=== PATIENT | male | born 1995 | race Caucasian/White ===

== ENCOUNTER 2017-04-06 19:00 | Emergency (ER) | payer BC ==
[~2017-04-06] VITALS: Wt 80.5 kg
[2017-04-06 20:03] LABS: ADD SCAN DIFF NO
[2017-04-06 20:04] LABS: BASOPHILS % 0.4 % (0.0-2.0); EOSINOPHILS # 0.2 10^3/ul (0.0-0.5); EOSINOPHILS % 2.9 % (0.0-7.0); HEMATOCRIT 46.8 % (42.0-52.0); HEMOGLOBIN 16.8 g/dl (14.0-18.0); LYMPHOCYTES # 2.5 10^3/ul (0.8-2.9); LYMPHOCYTES % 32.1 % (15.0-51.0); MEAN CORPUSCULAR HEMOGLOBIN 32.2 pg (29.0-33.0); MEAN CORPUSCULAR HGB CONC 35.9 g/dl (32.0-37.0); MEAN CORPUSCULAR VOLUME 89.7 fl (82.0-101.0); MEAN PLATELET VOLUME 10.5 fl (7.4-10.4); MONOCYTE # 0.7 10^3/ul (0.3-0.9); MONOCYTES % 8.5 % (0.0-11.0); NEUTROPHIL # 4.4 10^3/ul (1.6-7.5); NEUTROPHILS % 56.1 % (39.0-77.0); PLATELET COUNT 257 10^3/UL (140-415); RED BLOOD COUNT 5.22 10^6/ul (4.70-6.10); RED CELL DISTRIBUTION WIDTH 11.2 % (11.5-14.5); WHITE BLOOD COUNT 7.9 10^3/ul (4.8-10.8)
--- NOTE | 2017-04-06 20:14 | RADRPT ---
PROCEDURE: XR Chest. CLINICAL INDICATION: Cough TECHNIQUE: Single AP portable chest COMPARISON: None. FINDINGS: The cardiomediastinal silhouette is within normal limits of size . The lungs are clear without pleur al effusion or focal consolidation. No pneumothorax. The osseous structures and soft tissues are unr emarkable. IMPRESSION: 1. No evidence for active cardiopulmonary disease. RPTAT:AAJJ Anton Elizabeth Physician Date Time Electronically viewed and signed by Anton Elizabeth Physician on 04/06/2017 20:13 JASSON/
[2017-04-06 20:22] LABS: ALBUMIN 5.4 g/dl (3.3-4.9); ALBUMIN/GLOBULIN RATIO 1.68; BILIRUBIN,INDIRECT 0.4 mg/dl (0-1.1); BILIRUBIN,TOTAL 0.4 mg/dl (0.2-1.3); CREATININE 1.12 mg/dl (0.61-1.24); POTASSIUM 3.8 mmol/L (3.5-5.1); TOTAL PROTEIN 8.6 g/dl (6.1-8.1)
--- NOTE | 2017-04-06 20:27 | RADRPT ---
PROCEDURE: US Abdomen. CLINICAL INDICATION: Abdominal pain. TECHNIQUE: Multiple real-time images were acquired of the patient's right upper quadrant utilizing a high resolution transducer. The images were reviewed on a high-resolution PACS workstation. COMPARISON: None FINDINGS: The liver demonstrates normal echogenicity and size and no focal lesions are seen. The liver measure s 15.1 cm in size. No gallstones are identified within the gallbladder. There is no pericholecystic fluid. The gallbladder wall measures 1.7 mm in size. No intrahepatic biliary dilatation is seen. The common bile duct measures 2.5 mm in maximal dimension. The visualized portions of the pancreas are unremarkable. No free fluid is identified. The right kidney is of normal size, and demonstrate normal echogenicity and morphology. The right k idney measures 10.7 x 3.4 x 4.9 cm. There are is no dilatation of the right collecting system. The re are no perinephric fluid collections. There are no areas of increased echogenicity to suggest ne phrolithiasis. IMPRESSION: Unremarkable right upper quadrant ultrasound. RPTAT: HPNM Physician Lizette Date Time Electronically viewed and signed by Physician Lizette on 04/06/2017 20:27 /
[2017-04-06 20:50] LABS: ADD UMIC NO; URINE BILIRUBIN (Dip) NEGATIVE (NEGATIVE); URINE BLOOD (Dip) NEGATIVE (NEGATIVE); URINE COLOR LT. YELLOW (YELLOW); URINE GLUCOSE (Dip) NEGATIVE (NEGATIVE); URINE KETONES (Dip) NEGATIVE (NEGATIVE); URINE LEUKOCYTE ESTERASE (Dip) NEGATIVE (NEGATIVE); URINE NITRITE (Dip) NEGATIVE (NEGATIVE); URINE TOTAL PROTEIN (Dip) NEGATIVE (NEGATIVE); URINE UROBILINOGEN (Dip) 0.2 E.U./dL (0.1-1.0)
[2017-04-06] MEDS ORDERED: D-ME473S18 PO (21:05)
[2017-04-06] MEDS ORDERED: MED4DP PO (21:06)
--- NOTE | 2017-04-06 21:21 | ERD ---
ER Documentation Chief Complaint Date/Time DATE: 04/06/17 TIME: 21:10 Chief Complaint Cough x1 week, Pain in the Abd when coughing. needs lab works HPI This is a 21-year-old male presents to the ER with a cough for the last week. Cough is dry and constant. He states that cough is worsening and that his abdomen is now hurting whenever he coughs. Patient states that he went to his primary care doctor week ago and blood work was drawn. Patient stated that he got a call couple days ago that liver enzymes were off and that he needed a liver ultrasound. He denies any abdominal pain at this time he denies nausea vomiting or diarrhea. He denies any fevers or chills. He denies urinary frequency, dysuria, hematuria. He denies chest pain or shortness of breath. ROS 12 point review of systems was done, all negative except per HPI. Medications Home Meds Active Scripts Methylprednisolone* (Medrol* DOSE PACK) 4 Mg/Dose-Pack Tab.ds.pk, 4 MG PO . DIRECTED for 6 Days, PACKET Prov:STEPHANIE ARORA 04/06/17 Dextromethorphan Hb-Promethazine Hcl (Promethazine DM Syrup) 473 Ml Syrup, 10 ML PO Q6H Y for COUGH, #4 OZ Prov:STEPHANIE ARORA 04/06/17 Allergies Allergies: Coded Allergies: No Known Allergy (Unverified , 10/31/13) PMhx/Soc History of Surgery: No Anesthesia Reaction: No Hx Neurological Disorder: No Hx Respiratory Disorders: No Hx Cardiac Disorders: No Hx Psychiatric Problems: No Hx Miscellaneous Medical Probl: No Hx Alcohol Use: No Hx Substance Use: No Hx Tobacco Use: No Physical Exam Vitals Vital Signs Date Time Temp Pulse Resp B/P Pulse Ox O2 Delivery O2 Flow Rate FiO2 04/06/17 19:11 98.7 82 20 138/71 98 Physical Exam GENERAL: The patient is well-developed, well-nourished, in no acute distress. NECK: Cervical spine is non tender with no step off. Supple, no nuchal rigidity HEENT: Atraumatic. Pupils equal, round and reactive to light. Extraocular muscles are grossly intact. Conjunctivae pink, no discharge. Bilateral tympanic membranes are clear with no evidence of erythema, effusion or dulling of the light reflex. Tonsilar erythema with no exudates or uvular deviation. Clear rhinorrhea. RESPIRATORY: Clear to auscultation bilaterally. There are no rales, wheezes or rhonchi. HEART: Regular rate and rhythm. No murmurs, clicks, rubs or gallops. EXTREMITIES: No clubbing or cyanosis. Full range of motion. Grossly neurovascularly intact. NEUROLOGIC: Alert and oriented. Cranial nerves II through XII are intact. SKIN: There is no rash. The skin is warm and dry. Result Diagram: 04/06/17195204/06/171952 Results 24 hrs Laboratory Tests Test 04/06/17 19:53 04/06/17 20:23 White Blood Count 7.910^3/ul Red Blood Count 5.2210^6/ul Hemoglobin 16.8g/dl Hematocrit 46.8% Mean Corpuscular Volume 89.7fl Mean Corpuscular Hemoglobin 32.2pg Mean Corpuscular Hemoglobin Concent 35.9g/dl Red Cell Distribution Width 11.2% Platelet Count 31173^3/UL Mean Platelet Volume 10.5fl Neutrophils % 56.1% Lymphocytes % 32.1% Monocytes % 8.5% Eosinophils % 2.9% Basophils % 0.4% Nucleated Red Blood Cells % 0.0/100WBC Neutrophils # 4.410^3/ul Lymphocytes # 2.510^3/ul Monocytes # 0.710^3/ul Eosinophils # 0.210^3/ul Basophils # 0.010^3/ul Nucleated Red Blood Cells # 0.010^3/ul Sodium Level 143mmol/L Potassium Level 3.8mmol/L Chloride Level 102mmol/L Carbon Dioxide Level 28mmol/L Anion Gap 17 Blood Urea Nitrogen 13mg/dl Creatinine 1.12mg/dl Glucose Level 94mg/dl Calcium Level 10.0mg/dl Total Bilirubin 0.4mg/dl Direct Bilirubin 0.00mg/dl Indirect Bilirubin 0.4mg/dl Aspartate Amino Transf (AST/SGOT) 36IU/L Alanine Aminotransferase (ALT/SGPT) 46IU/L Alkaline Phosphatase 59IU/L Total Protein 8.6g/dl Albumin 5.4g/dl Globulin 3.20g/dl Albumin/Globulin Ratio 1.68 Urine Color LT. YELLOW Urine Clarity CLEAR Urine pH 6.0 Urine Specific [place] >=1.030 Urine Ketones NEGATIVE Urine Nitrite NEGATIVE Urine Bilirubin NEGATIVE Urine Urobilinogen 0.2 E.U./dL Urine Leukocyte Esterase NEGATIVE Urine Hemoglobin NEGATIVE Urine Glucose NEGATIVE% Urine Total Protein NEGATIVE Procedures/MDM Differential diagnosis includes but is not limited to; Viral URI, allergic rhinitis, bronchitis, pertussis,pneumonia. This is likely viral in etiology. Clinical suspicion for pneumonia is low as patient appears well, is not hypoxic or in any respiratory distress. Additionally, patients physical examination is benign. In regards to patient's liver enzymes they are normal and ultrasound is normal. Patient is afebrile, well-appearing and not complaining of any abdominal pain. I doubt any liver abnormalities or intra-abdominal emergencies at this time. Plan was discussed with patient they understand and agree. Patient needs to follow up with PCP in 1-2 days or return to ER sooner if symptoms worsen. Departure Diagnosis: Primary Impression: Upper respiratory infection Condition: Stable Patient Instructions: Preventing Common Respiratory Infections Additional Instructions: Call your primary care doctor TOMORROW for an appointment during the next 1-2 days.See the doctor sooner or return here if your condition worsens before your appointment time. STEPHANIE ARORA Apr 06, 2017 21:20
== END 2017-04-06 21:27 | disposition home or self-care (01) ==
LOC: FTE 19:00
DX: J06.9 Acute upper respiratory infection, unspecified (principal)
CPT/HCPCS: 71010; 76705; 80053; 81003; 85025; Z7502

== ENCOUNTER 2017-06-01 11:01 | Emergency (ER) | payer BC ==
[~2017-06-01] VITALS: Wt 78.5 kg
[~2017-06-01 11:01] MED LIST: D-ME473S18 PO; MED4DP PO
--- NOTE | 2017-06-01 13:03 | ERD ---
ER Documentation Chief Complaint Date/Time DATE: 06/01/17 TIME: 13:02 Chief Complaint SWELLING/PAIN ON THROAT, ONSET 1 WEEK HPI This is a 21-year-old male presents to the ER stating his throat has been sore at night and in the mornings when he wakes up. Patient states that his uvula is swollen and is touching his tongue. He denies any difficulty in swallowing. He does not have any fevers or chills. He does not have any nausea vomiting or diarrhea. He denies any cough or cold symptoms. He denies any cough or cold symptoms ROS 12 point review of systems was done, all negative except per HPI. Medications Home Meds Active Scripts Fexofenadine Hcl* (Monalisa*) 180 Mg Tablet, 180 MG PO DAILY, #30 TAB Prov:STEPHANIE ARORA 06/01/17 Fluticasone Propionate (Flonase Allergy Relief) 9.9 Ml [place].susp, 1 SPRAY NASAL DAILY, #1 BOTTLE TO EACH NOSTRIL Prov:STEPHANIE ARORA 06/01/17 Famotidine* (Pepcid*) 20 Mg Tablet, 20 MG PO BID for 14 Days, TAB Prov:STEPHANIE ARORA 06/01/17 Methylprednisolone* (Medrol* DOSE PACK) 4 Mg/Dose-Pack Tab.ds.pk, 4 MG PO . DIRECTED for 6 Days, PACKET Prov:MAITESTEPHANIE Lan 04/06/17 Dextromethorphan Hb-Promethazine Hcl (Promethazine DM Syrup) 473 Ml Syrup, 10 ML PO Q6H Y for COUGH, #4 OZ Prov:MAITESTEPHANIE Lan 04/06/17 Allergies Allergies: Coded Allergies: No Known Allergy (Unverified , 06/01/17) PMhx/Soc Medical and Surgical Hx: pt denies Medical Hx, pt denies Surgical Hx History of Surgery: No Anesthesia Reaction: No Hx Neurological Disorder: No Hx Respiratory Disorders: No Hx Cardiac Disorders: No Hx Psychiatric Problems: No Hx Miscellaneous Medical Probl: No Hx Alcohol Use: No Hx Substance Use: No Hx Tobacco Use: No Smoking Status: Never smoker Physical Exam Vitals Vital Signs Date Time Temp Pulse Resp B/P Pulse Ox O2 Delivery O2 Flow Rate FiO2 06/01/17 11:04 98.9 75 17 139/77 99 Physical Exam GENERAL: The patient is well-developed, well-nourished, in no acute distress. NECK: Cervical spine is non tender with no step off. Supple, no nuchal rigidity HEENT: Atraumatic. Pupils equal, round and reactive to light. Extraocular muscles are grossly intact. Conjunctivae pink, no discharge. Bilateral tympanic membranes are clear with no evidence of erythema, effusion or dulling of the light reflex. Tonsilar erythema with no exudates or uvular deviation. Clear rhinorrhea. RESPIRATORY: Clear to auscultation bilaterally. There are no rales, wheezes or rhonchi. HEART: Regular rate and rhythm. No murmurs, clicks, rubs or gallops. EXTREMITIES: No clubbing or cyanosis. Full range of motion. Grossly neurovascularly intact. NEUROLOGIC: Alert and oriented. Cranial nerves II through XII are intact. SKIN: There is no rash. The skin is warm and dry. Procedures/MDM This is a 21-year-old male presents to the ER with a sore throat. On physical examination there is no evidence of tonsillar exudates or uvular deviation. Suspicion for strep throat or retropharyngeal or peritonsillar abscess is low. Patient only has a sore throat at night and in the morning, this may be secondary to postnasal drip versus allergic rhinitis versus occurred. Patient will be treated with Monalisa, Flonase and famotidine. Patient is to follow-up with his primary care doctor within 1-2 days or return to ER sooner if symptoms worsen. My medical decision making shared with the patient he understands and agrees with plan. Departure Diagnosis: Primary Impression: Sore throat Condition: Stable STEPHANIE ARORA Jun 01, 2017 13:03
[2017-06-01] MEDS ORDERED: FLUT9.9S NASAL (13:11)
[2017-06-01] MEDS ORDERED: FAMO-96 PO (13:11)
[2017-06-01] MEDS ORDERED: FEXO180T61 PO (13:12)
[2017-06-01 13:45] VITALS: BP 126/73; PULSE 75; RESP 16; TEMP 98.9
== END 2017-06-01 13:45 | disposition home or self-care (01) ==
LOC: FTE 11:01
DX: J02.9 Acute pharyngitis, unspecified (principal)
CPT/HCPCS: 87880; Z7502; 99283

== ENCOUNTER 2017-06-14 12:45 | Emergency (ER) | payer BC ==
[~2017-06-14] VITALS: Ht 177.8 cm; Wt 79.0 kg
[~2017-06-14 12:45] MED LIST changes: +FAMO-96 PO; +FEXO180T61 PO; +FLUT9.9S NASAL
[2017-06-14 12:48] VITALS: Ht 177.8 cm; Wt 79.0 kg
[2017-06-14] MEDS ORDERED: HYDROCODONE/APAP (5/325) TAB PO ONE (14:00)
[2017-06-14 14:48] LABS: BASOPHILS % 0.4 % (0.0-2.0); EOSINOPHILS # 0.2 10^3/ul (0.0-0.5); EOSINOPHILS % 2.7 % (0.0-7.0); HEMATOCRIT 46.3 % (42.0-52.0); HEMOGLOBIN 16.1 g/dl (14.0-18.0); LYMPHOCYTES # 2.3 10^3/ul (0.8-2.9); LYMPHOCYTES % 33.7 % (15.0-51.0); MEAN CORPUSCULAR HGB CONC 34.8 g/dl (32.0-37.0); MEAN CORPUSCULAR VOLUME 89.2 fl (82.0-101.0); MEAN PLATELET VOLUME 10.4 fl (7.4-10.4); MONOCYTE # 0.5 10^3/ul (0.3-0.9); MONOCYTES % 7.5 % (0.0-11.0); NEUTROPHILS % 55.4 % (39.0-77.0); PLATELET COUNT 208 10^3/UL (140-415); RED BLOOD COUNT 5.19 10^6/ul (4.70-6.10); RED CELL DISTRIBUTION WIDTH 11.3 % (11.5-14.5); WHITE BLOOD COUNT 6.8 10^3/ul (4.8-10.8)
[2017-06-14 15:05] LABS: ALBUMIN 5.1 g/dl (3.3-4.9); ALBUMIN/GLOBULIN RATIO 1.41; BILIRUBIN,INDIRECT 0.4 mg/dl (0-1.1); BILIRUBIN,TOTAL 0.4 mg/dl (0.2-1.3); CALCIUM 9.6 mg/dl (8.4-10.2); POTASSIUM 3.7 mmol/L (3.5-5.1); TOTAL PROTEIN 8.7 g/dl (6.1-8.1)
--- NOTE | 2017-06-14 15:18 | ERD ---
ER Documentation Chief Complaint Date/Time DATE: 06/14/17 TIME: 15:15 Chief Complaint body pain since being diagnosed with sore throat HPI This is a 21-year-old male presenting to emergency department with sore throat, fatigue and left upper quadrant abdominal pain and generalized body pain 4 weeks. Patient was seen here 4 weeks ago and was diagnosed with viral pharyngitis. Patient states he continues to have sore throat with now left upper quadrant abdominal pain. No nausea or vomiting. No difficulty swallowing or drooling. No muffled voice. No fevers or chills. ROS All systems reviewed and are negative except as per history of present illness. Medications Home Meds Active Scripts Ibuprofen* (Motrin*) 600 Mg Tab, 600 MG PO Q6, #15 TAB Prov:ANDREA DIAZ NP 06/14/17 Hydrocodone/Acetaminophen ([place] 5-325 Tablet) 1 Each Tablet, 1 TAB PO Q6H Y for PAIN, #7 TAB Prov:ANDREA DIAZ NP 06/14/17 Fexofenadine Hcl* (Monalisa*) 180 Mg Tablet, 180 MG PO DAILY, #30 TAB Prov:STEPHANIE ARORA 06/01/17 Fluticasone Propionate (Flonase Allergy Relief) 9.9 Ml [place].susp, 1 SPRAY NASAL DAILY, #1 BOTTLE TO EACH NOSTRIL Prov:STEPHANIE ARORA 06/01/17 Famotidine* (Pepcid*) 20 Mg Tablet, 20 MG PO BID for 14 Days, TAB Prov:STEPHANIE ARORA 06/01/17 Methylprednisolone* (Medrol* DOSE PACK) 4 Mg/Dose-Pack Tab.ds.pk, 4 MG PO . DIRECTED for 6 Days, PACKET Prov:STEPHANIE ARORA 04/06/17 Dextromethorphan Hb-Promethazine Hcl (Promethazine DM Syrup) 473 Ml Syrup, 10 ML PO Q6H Y for COUGH, #4 OZ Prov:STEPHANIE ARORA 04/06/17 Allergies Allergies: Coded Allergies: No Known Allergy (Unverified , 06/01/17) PMhx/Soc History of Surgery: No Anesthesia Reaction: No Hx Neurological Disorder: No Hx Respiratory Disorders: No Hx Cardiac Disorders: No Hx Psychiatric Problems: No Hx Miscellaneous Medical Probl: No Hx Alcohol Use: No Hx Substance Use: No Hx Tobacco Use: No Smoking Status: Never smoker Physical Exam Vitals Vital Signs Date Time Temp Pulse Resp B/P Pulse Ox O2 Delivery O2 Flow Rate FiO2 06/14/17 12:48 98.9 90 16 134/79 97 Physical Exam Const: Alert, no acute distress Head: Atraumatic Eyes: Normal Conjunctiva ENT: Normal External Ears, Nose and Mouth. No erythema or exudate posterior pharynx. No peritonsillar abscess. Non-kissing tonsils. Neck: Full range of motion..~ No meningismus. No lymphadenopathy. negative Brudzinski and Kernig sign Resp: Clear to auscultation bilaterally. No wheezing, rhonchi or crackles. Cardio: Regular rate and rhythm, no murmurs Abd: Soft, non tender, non distended. Normal bowel sounds Skin: No petechiae or rashes Back: No midline or flank tenderness Ext: No cyanosis, or edema Neur: Awake and alert Psych: Normal Mood and Affect Result Diagram: 06/14/17 1425 06/14/17 1425 Results 24 hrs Laboratory Tests Test 06/14/17 14:25 White Blood Count 6.810^3/ul Red Blood Count 5.1910^6/ul Hemoglobin 16.1g/dl Hematocrit 46.3% Mean Corpuscular Volume 89.2fl Mean Corpuscular Hemoglobin 31.0pg Mean Corpuscular Hemoglobin Concent 34.8g/dl Red Cell Distribution Width 11.3% Platelet Count 85717^3/UL Mean Platelet Volume 10.4fl Neutrophils % 55.4% Lymphocytes % 33.7% Monocytes % 7.5% Eosinophils % 2.7% Basophils % 0.4% Nucleated Red Blood Cells % 0.0/100WBC Neutrophils # (Manual) 410^3/ul Lymphocytes # 2.310^3/ul Monocytes # 0.510^3/ul Eosinophils # 0.210^3/ul Basophils # 0.010^3/ul Nucleated Red Blood Cells # 0.010^3/ul Sodium Level 141mmol/L Potassium Level 3.7mmol/L Chloride Level 100mmol/L Carbon Dioxide Level 28mmol/L Anion Gap 17 Blood Urea Nitrogen 10mg/dl Creatinine 1.00mg/dl Glucose Level 89mg/dl Calcium Level 9.6mg/dl Total Bilirubin 0.4mg/dl Direct Bilirubin 0.00mg/dl Indirect Bilirubin 0.4mg/dl Aspartate Amino Transf (AST/SGOT) 20IU/L Alanine Aminotransferase (ALT/SGPT) 27IU/L Alkaline Phosphatase 51IU/L Total Protein 8.7g/dl Albumin 5.1g/dl Globulin 3.60g/dl Albumin/Globulin Ratio 1.41 Monoscreen Negative Current Medications Medications (Trade) Dose Ordered Sig/Garima Route PRN Reason Start Time Stop Time Status Last Admin Dose Admin Acetaminophen/ Hydrocodone Bitart ([place] (5/325)) 1 tab ONCE ONCE PO 06/14/17 14:00 06/14/17 14:01 DC 06/14/17 14:12 Procedures/MDM MDM: This is a 21-year-old male presenting to emergency department with sore throat, fatigue and left upper quadrant abdominal pain 4 weeks. This is patient's second visit here and he continues to have sore throat. No difficulty swallowing or drooling. Lung exam is normal. No signs or symptoms of respiratory distress. Oxygen saturation 97% on room air. Patient is afebrile upon arrival to ED and vital signs are stable. Consulted Dr. Davison regarding this patient and we agree that lab work should be done. CBC, CMP and Monospot ordered. A rapid strep swab was ordered. Patient given [place] 5/325 mg p.o. CBC shows no significant anemia or infection. CMP shows no significant electrolyte imbalance. Liver enzymes are normal. Monospot is Rapid strep test is negative. Differential diagnosis includes but not limited to strep pharyngitis, pneumonia , viral pharyngitis, influenza, coxsackievirus, herpes simplex virus, Alison- Tuttle virus, Respiratory syncytial virus and otitis media. Patient likely has viral pharyngitis. Patient is appropriate for outpatient management and will be discharged with prescription for Motrin. Instructed patient to follow up with primary care provider in the next 2-3 days for reassessment.Return to ED for any high fever, chest pain, difficulty breathing, shortness breath, wheezing, vomiting, diarrhea , abdominal pain or any new or worsening symptoms. Patient verbalizes understanding. All questions answered at discharge. Departure Diagnosis: Primary Impression: Sore throat Condition: Stable ANDREA DIAZ NP Jun 14, 2017 15:15
[2017-06-14] MEDS ORDERED: IBUP-1542 PO (15:19)
[2017-06-14] MEDS ORDERED: HYDR-906 PO (15:19)
[2017-06-14 15:40] VITALS: BP 133/77; PULSE 80; RESP 16; TEMP 98.9
== END 2017-06-14 15:46 | disposition home or self-care (01) ==
LOC: FTE 12:45
DX: J02.9 Acute pharyngitis, unspecified (principal)
CPT/HCPCS: 80053; 85025; 86308; 87880; Z7502; Z7610; 99283